=== PATIENT | female | born 1990 | race Caucasian/White ===

== ENCOUNTER 2017-04-11 10:45 | Emergency (ER) | payer OTHER ==
[~2017-04-11] VITALS: Ht 172.7 cm; Wt 63.3 kg
[2017-04-11] MEDS ORDERED: SODIUM CHLORIDE 0.9% 1,000 ML IV ONE (11:20)
[2017-04-11] MEDS ORDERED: SODIUM CHLORIDE FLUSH 10ML SYR IVF ONE (11:30)
[2017-04-11] MEDS ORDERED: SODIUM CHLORIDE 0.9% 1,000ML IVBOLUS ONE (11:30)
[2017-04-11] MEDS ORDERED: ONDANSETRON ODT 4 MG ONE (11:57)
[2017-04-11] MEDS ORDERED: ONDANSETRON ODT 4 MG PO ONE (12:00)
[2017-04-11 12:06] LABS: HEMATOCRIT 46.4 % (34.6-47.8); HEMOGLOBIN 15.4 g/dL (11.7-16.4); WHITE BLOOD COUNT 10.1 x10^3/uL (3.4-10)
[2017-04-11 12:15] LABS: BLOOD UREA NITROGEN 11 mg/dL (7-18)
[2017-04-11 12:21] LABS: ASPARTATE AMINO TRANSFERASE 19 U/L (15-37)
[2017-04-11 13:38] VITALS: BP 107/60
== END 2017-04-11 13:40 | disposition home or self-care (01) ==
LOC: ED 12:09
DX: R55 Syncope and collapse (principal); R42 Dizziness and giddiness; R00.0 Tachycardia, unspecified; Z36.3 Encounter for antenatal screening for malformations
CPT/HCPCS: 36415; 71010; 80053; 84439; 84443; 84703; 85025; 93005; 96360; 99285; J7030; Q0162

== ENCOUNTER 2017-07-18 18:31 | Emergency (ER) | payer OTHER ==
[~2017-07-18] VITALS: Ht 172.7 cm; Wt 63.2 kg
[2017-07-18 18:32] VITALS: BP 124/82
[2017-07-18] MEDS ORDERED: KETOROLAC 30 MG/1 ML ONE (19:47)
[2017-07-18] MEDS ORDERED: KETOROLAC 30 MG/1 ML IM ONE (20:00)
== END 2017-07-18 19:56 | disposition home or self-care (01) ==
LOC: ED 19:20
DX: M54.5 Low back pain (principal); Z90.49 Acquired absence of other specified parts of digestive tract
CPT/HCPCS: 72110; 96372; 99284; J1885

== ENCOUNTER 2017-08-16 10:56 | Emergency (ER) | payer OTHER ==
[~2017-08-16] VITALS: Ht 172.7 cm; Wt 62.5 kg
[2017-08-16] MEDS ORDERED: DIAZEPAM 5 MG TABLET ONE (11:46)
[2017-08-16] MEDS ORDERED: KETOROLAC 30 MG/1 ML ONE (11:47)
[2017-08-16] MEDS ORDERED: OXYcodone/APAP 5/325MG TABLET ONE (11:47)
[2017-08-16] MEDS ORDERED: OXYcodone/APAP 5/325MG TABLET PO ONE (12:00)
[2017-08-16] MEDS ORDERED: KETOROLAC 30 MG/1 ML IM ONE (12:00)
[2017-08-16] MEDS ORDERED: DIAZEPAM 5 MG TABLET PO ONE (12:00)
[2017-08-16 12:25] VITALS: BP 122/85
== END 2017-08-16 12:29 | disposition home or self-care (01) ==
LOC: ED 12:00
DX: S76.111A Strain of right quadriceps muscle, fascia and tendon, initial encounter (principal); M46.1 Sacroiliitis, not elsewhere classified; X58.XXXA Exposure to other specified factors, initial encounter; Z90.49 Acquired absence of other specified parts of digestive tract; Y93.89 Activity, other specified; Y99.8 Other external cause status; Y92.89 Other specified places as the place of occurrence of the external cause
CPT/HCPCS: 96372; 99283; J1885

== ENCOUNTER → 2017-09-02 | Outpatient (CLI) | payer OTHER | END | disposition home or self-care (01) | LOC: RAD 07:39 | PROVIDERS: ATTEND Physician Assistant | DX: M46.1 Sacroiliitis, not elsewhere classified (principal); M54.5 Low back pain | CPT/HCPCS: 72195 ==

== ENCOUNTER 2020-02-05 21:21 | Emergency (ER) | payer OTHER ==
[~2020-02-05] VITALS: Ht 172.7 cm; Wt 63.7 kg
[2020-02-05] MEDS ORDERED: LORazepam 1MG TABLET ONE (21:55)
--- NOTE | 2020-02-05 21:58 | NUR ---
APPLIER PER JUL. XRAY COMPLETE. LAB AT BEDSIDE.
[2020-02-05] MEDS ORDERED: LORazepam 1MG TABLET PO ONE (22:00)
--- NOTE | 2020-02-05 22:00 | NUR ---
PT GOING TO US
[2020-02-05 22:12] LABS: BASOPHILS # (AUTO) 0.03 x10^3/uL (0-0.1); BASOPHILS % (AUTO) 0 % (0-1); EOSINOPHILS # (AUTO) 0.59 x10^3/uL (0-0.4); EOSINOPHILS % (AUTO) 7 % (1-7); LYMPHOCYTES # (AUTO) 2.03 x10^3/uL (1-3.4); LYMPHOCYTES % (AUTO) 24 % (22-44); MD NO; MEAN CORPUSCULAR HEMOGLOBIN 30.2 pg (27.0-34.8); MEAN CORPUSCULAR VOLUME 91.5 fL (80-100); MEAN PLATELET VOLUME 7.8 fL (7.4-10.4); MONOCYTES # (AUTO) 0.44 x10^3/uL (0.2-0.8); MONOCYTES % (AUTO) 5 % (2-9); NEUTROPHILS % (AUTO) 64 % (42-75); PLATELET COUNT 291 x10^3/uL (130-400); RED CELL DISTRIBUTION WIDTH 12.1 % (9.6-15.2)
[2020-02-05 22:22] LABS: ALANINE AMINOTRANSFERASE 17 U/L (12-78); ALBUMIN 3.9 g/dL (3.4-5.0); ANION GAP 11 mmol/L (5-15); CALCIUM 8.8 mg/dL (8.5-10.1); CHLORIDE 108 mmol/L (98-107)
[2020-02-05 22:28] LABS: ALKALINE PHOSPHATASE 47 U/L (45-117); BILIRUBIN,TOTAL 0.4 mg/dL (0.2-1.0); CREATININE 0.88 mg/dL (0.55-1.02); FREE T4 (FREE THYROXINE) 1.13 ng/dL (0.76-1.46); TOTAL PROTEIN 7.9 g/dL (6.4-8.2); TROPONIN I < 0.015 ng/mL (0.000-0.045)
--- NOTE | 2020-02-05 22:37 | NUR ---
PT BACK FROM US. PT RECONNECTED TO MONITORING. RADHA. CALL LIGHT IN REACH.
--- NOTE | 2020-02-05 22:56 | NUR ---
REPORT GIVEN TO KALEB ALFREDO.
[2020-02-05 23:37] VITALS: BP 115/78
== END 2020-02-05 23:39 | disposition home or self-care (01) ==
LOC: ED 22:39
DX: R42 Dizziness and giddiness (principal); R55 Syncope and collapse; R00.2 Palpitations; R06.02 Shortness of breath; R06.4 Hyperventilation; R00.0 Tachycardia, unspecified; I44.4 Left anterior fascicular block; R10.9 Unspecified abdominal pain; Z90.49 Acquired absence of other specified parts of digestive tract
CPT/HCPCS: 36415; 71045; 80053; 84439; 84443; 84484; 84703; 85025; 85379; 93005; 93970; 99285

== ENCOUNTER 2020-09-19 16:01 | Emergency (ER) | payer OTHER ==
[~2020-09-19] VITALS: Ht 172.7 cm; Wt 67.2 kg
--- NOTE | 2020-09-19 16:26 | NUR ---
PT AMBULATED TO BR WITHOUT DIFFICULTY. INSTRUCTED ON CLEAN CATCH URINE SAMPLE.
[2020-09-19] MEDS ORDERED: METHOCARBAMOL 750 MG TABLET ONE (16:40)
[2020-09-19] MEDS ORDERED: ONDANSETRON 2MG/ML, 2ML ONE (16:40)
[2020-09-19] MEDS ORDERED: KETOROLAC 30 MG/1 ML ONE (16:40)
[2020-09-19 16:49] LABS: BASOPHILS % (AUTO) 1 % (0-1); EOSINOPHILS % (AUTO) 5 % (1-7); LYMPHOCYTES % (AUTO) 14 % (22-44); MEAN CORPUSCULAR HEMOGLOBIN 30.6 pg (27.0-34.8); MEAN CORPUSCULAR HGB CONC 34.1 g/dL (32.4-35.8); MEAN PLATELET VOLUME 7.8 fL (7.4-10.4); MONOCYTES % (AUTO) 7 % (2-9); NEUTROPHILS % (AUTO) 73 % (42-75); PLATELET COUNT 255 x10^3/uL (130-400); RED BLOOD COUNT 4.97 x10^6/uL (3.82-5.3); RED CELL DISTRIBUTION WIDTH 12.2 % (9.6-15.2)
--- NOTE | 2020-09-19 16:50 | NUR ---
PT TO RADIOLOGY VIA [facility].
[2020-09-19 16:56] LABS: MD NO
[2020-09-19] MEDS ORDERED: ONDANSETRON 2MG/ML, 2ML IVPush ONE (17:00)
[2020-09-19] MEDS ORDERED: METHOCARBAMOL 750 MG TABLET PO ONE (17:00)
[2020-09-19] MEDS ORDERED: SODIUM CHLORIDE 0.9% 1,000ML IV ONE (17:00)
[2020-09-19] MEDS ORDERED: KETOROLAC 30 MG/1 ML IVPush ONE (17:00)
--- NOTE | 2020-09-19 17:00 | NUR ---
PT RETURNED FROM XR. 'WD POC WITH HER. REPORTED TO BLAIR ALFREDO.
[2020-09-19 17:01] LABS: ANION GAP 5 mmol/L (5-15); CALCIUM 9.1 mg/dL (8.5-10.1); CHLORIDE 108 mmol/L (98-107); CREATININE 0.76 mg/dL (0.55-1.02)
[2020-09-19 17:03] LABS: MICROSCOPIC INDICATED
--- NOTE | 2020-09-19 17:10 | NUR ---
PT MEDICATED PER MAR
[2020-09-19] MEDS ORDERED: MORPHINE SULFATE 4 MG/ML, 1ML ONE (17:38)
[2020-09-19] MEDS ORDERED: MORPHINE SULFATE 4 MG/ML, 1ML IVPush ONE (18:00)
[2020-09-19 18:02] VITALS: BP 117/74
== END 2020-09-19 18:14 | disposition home or self-care (01) ==
LOC: ED 18:08
DX: S39.012A Strain of muscle, fascia and tendon of lower back, initial encounter (principal); M54.41 Lumbago with sciatica, right side; X58.XXXA Exposure to other specified factors, initial encounter; Y93.89 Activity, other specified; Y92.89 Other specified places as the place of occurrence of the external cause; Y99.8 Other external cause status
CPT/HCPCS: 36415; 72110; 80048; 81001; 82040; 84703; 85025; 87086; 96374; 96375; 99284; J1885; J2270; J2405; J7030